=== PATIENT | male | born 1990 | race Two or more races ===

== ENCOUNTER 2018-03-03 09:56 | Emergency (ER) | payer SELFPAY ==
[2018-03-03 10:23] VITALS: BP 137/84; PULSE 63; TEMP 98.2; BMI 36.9
--- NOTE | 2018-03-03 10:31 | PDOC ---
Attending Attestation - Resident Resident Name: SamantaNaderjulianecherelle - ED Attending Attestation I have performed the following: I have examined & evaluated the patient, The case was reviewed & discussed with the resident, I agree w/resident's findings & plan, Exceptions are as noted - HPI HPI: 03/03/18 12:12 Reviewed Residents HPI - Physicial Exam PE: 03/03/18 12:12 Reviewed Residents PE - Medical Decision Making 03/03/18 12:12 28 years old past medical history significant for vertigo presents emergency department with vertiginous episode this morning at work stood up from against been vomited once currently feels better nonfocal neurologic examination. CT head performed which demonstrates no acute pathology given no imaging in the past Labs within normal limits patient feels much better after IV fluids Zofran and meclizine. We'll discharge with prescription for meclizine as well as appointment with our clinic Findings, the need for follow-up and strict return instructions discussed patient.
[2018-03-03] MEDS ORDERED: ONDANSETRON 4 MG/2 ML VIAL IVPUSH ONE (10:32)
[2018-03-03] MEDS ORDERED: SODIUM CHLORIDE 0.9% 1000 ML INFUS.BAG IV ONE (10:32)
[2018-03-03] MEDS ORDERED: MECLIZINE HCL 25 MG TABLET (FP) PO ONE (10:39)
[2018-03-03] MEDS ORDERED: MECLIZINE HCL 25 MG TABLET (FP) ONE (11:05)
[2018-03-03] MEDS ORDERED: ONDANSETRON 4 MG/2 ML VIAL ONE (11:05)
[2018-03-03 11:48] LABS: BASO % 0.7 % (0-2.0); EOS % 2.1 % (0-4.5); HEMATOCRIT 47.6 % (35.4-49); HEMOGLOBIN 16.3 GM/dL (11.7-16.9); LYMPH % 19.2 % (8-40); MCH 30.2 pg (25.7-33.7); MCHC 34.3 g/dl (32.0-35.9); MEAN CELL VOLUME 88.1 fl (80-96); MEAN PLT VOLUME 8.1 fl (7.5-11.1); MONO % 5.1 % (3.8-10.2); NEUT % 72.9 % (42.8-82.8); PLATELET COUNT 279 K/MM3 (134-434); WHITE BLOOD COUNT 8.3 K/mm3 (4.0-10.0)
[2018-03-03 12:14] LABS: ALBUMIN 4.5 g/dl (3.4-5.0); ALK PHOS 90 U/L (45-117); ANION GAP 6 MMOL/L (8-16); BILIRUBIN,TOTAL 0.5 mg/dL (0.2-1); BLOOD UREA NITROGEN 11 mg/dL (7-18); CALCIUM 9.2 mg/dL (8.5-10.1); CHLORIDE 104 mmol/L (98-107); CO2 27 mmol/L (21-32); CREATININE 0.5 mg/dL (0.55-1.3); GLUCOSE,RANDOM 128 mg/dL (74-106); POTASSIUM 4.3 mmol/L (3.5-5.1); SGOT/AST 62 U/L (15-37); SGPT/ALT 181 U/L (13-61); SODIUM 137 mmol/L (136-145); TOT PROT 8.3 g/dl (6.4-8.2)
--- NOTE | 2018-03-03 12:17 | PDOC ---
History of Present Illness - General Chief Complaint: Nausea/Vomiting Stated Complaint: DIZZY/VOMITTING Time Seen by Provider: 03/03/18 10:28 - History of Present Illness Initial Comments: 28 year old male with PMH of what appears to be vertiginous symptoms but never diagnosed presenting with similar vertiginous symptoms since 9 AM. 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 Denies any current nausea and states that his symptoms have improved since but his work forced him to come and get an evaluation. Has been to the ED before for these symptoms (all started one year prior) but has never received a head CT or outpatient follow up with PCP or neurologist because of lack of insurance. Tc and headache, visual symptoms, FND, chest pain, SOB, paresthesias, or other concerning symptoms. He states that when these symptoms have happened in the past, he simply rested and took it easy until they resolved. 03/03/18 12:12 Past History - Past Medical History Allergies/Adverse Reactions: Allergies Allergy/AdvReac Type Severity Reaction Status Date / Time No Known Allergies Allergy Verified 03/03/18 10:14 Home Medications: Ambulatory Orders Meclizine HCl [Antivert -] 25 mg PO DAILY PRN #7 tablet 03/03/18 COPD: No Diabetes: Yes (? not on meds, no pcp) HTN: Yes (no meds) - Immunization History Immunization Up to Date: Yes - Suicide/Smoking/Psychosocial Hx Smoking History: Never smoked Hx Alcohol Use: No Drug/Substance Use Hx: No Review of Systems - Review of Systems Constitutional: No: Chills, Diaphoresis, Fever, Loss of Appetite HEENTM: No: Eye Pain, Blurred Vision, Tearing Respiratory: No: Cough, Orthopnea, Shortness of Breath Cardiac (ROS): No: Chest Pain, Edema, Irregular Heart Rate ABD/GI: Yes: Nausea, Vomiting. No: Diarrhea : No: Burning, Dysuria, Discharge, Frequency Musculoskeletal: No: Joint Pain, Joint Swelling, Muscle Pain Integumentary: No: Bruising, Change in Color, Lesions, Lumps Neurological: Yes: Dizziness. No: Numbness, Paresthesia, Tingling, Tremors, Weakness, Ataxia Psychiatric: No: Anxiety, Depression Endocrine: No: Flushing Hematologic/Lymphatic: No: Anemia, Blood Clots, Easy Bleeding *Physical Exam - Vital Signs Last Vital Signs Temp Pulse Resp BP Pulse Ox 98.2 F 63 18 137/84 97 03/03/18 10:14 03/03/18 10:14 03/03/18 10:14 03/03/18 10:14 03/03/18 11:30 - Physical Exam General Appearance: Yes: Nourished, Appropriately Dressed HEENT: positive: EOMI, INEZ, Normal ENT Inspection, Normal Voice Neck: positive: Trachea midline, Normal Thyroid, Supple. negative: Tender, Rigid Respiratory/Chest: positive: Lungs Clear, Normal Breath Sounds, Respiratory Distress, Accessory Muscle Use. negative: Chest Tender Cardiovascular: positive: Regular Rhythm, Regular Rate Gastrointestinal/Abdominal: positive: Normal Bowel Sounds, Flat. negative: Tender Musculoskeletal: positive: Normal Inspection. negative: Decreased Range of Motion Extremity: positive: Normal Capillary Refill, Normal Inspection, Normal Range of Motion. negative: Tender Integumentary: positive: Normal Color, Dry, Warm Neurologic: positive: academic physician II-XII NML intact, Fully Oriented, Alert, Normal Mood/ Affect, Normal Response, Motor Strength 5/5, Other (Normal gait) ED Treatment Course - LABORATORY CBC & Chemistry Diagram: 03/03/18 11:42 03/03/18 11:42 - ADDITIONAL ORDERS Additional order review: 03/03/18 11:42 RBC 5.40 MCV 88.1 MCHC 34.3 RDW 13.0 MPV 8.1 Neutrophils % 72.9 Lymphocytes % 19.2 Monocytes % 5.1 Eosinophils % 2.1 Basophils % 0.7 - RADIOLOGY Radiology Studies Ordered: Category Date Time Status HEAD CT WITHOUT CONTRAST [CT] Stat CT Scan 03/03/18 10:40 Completed - Medications Given in the ED: ED Medications Discontinued Medications Generic Name Dose Route Start Last Admin Trade Name Freq PRN Reason Stop Dose Admin Meclizine HCl 25 mg 03/03/18 10:39 03/03/18 11:24 Antivert - PO 03/03/18 10:40 25 mg ONCE ONE Administration Ondansetron HCl 4 mg 03/03/18 10:32 03/03/18 11:24 Zofran Injection IVPUSH 03/03/18 10:33 4 mg ONCE ONE Administration Sodium Chloride 1,000 ml 03/03/18 10:32 03/03/18 11:23 Normal Saline - IV 03/03/18 10:33 1,000 ml ONCE ONE Administration Medical Decision Making - Medical Decision Making 28 year old male with PMH of vertiginous symptoms but never officially diagnosed presenting with similar symptoms. Currently his symptoms are improved but he need to be evaluated in order to return to work. Head CT negative, labs WNL, and patient improved after Zofran and meclizine. Will DC home with clinic appointment schedule by our MC, Meclizine, E[place]ley maneuver instructions, and return precautions. 03/03/18 12:20 *DC/Admit/Observation/Transfer Diagnosis at time of Disposition: Vertigo Nausea & vomiting Qualifiers: Vomiting type: bilious vomiting Qualified Code(s): R11.14 - Bilious vomiting - Discharge Dispostion Disposition: HOME Condition at time of disposition: Improved Decision to Admit order: No - Prescriptions Prescriptions: Meclizine HCl [Antivert -] 25 mg PO DAILY PRN #7 tablet PRN Reason: Vertigo - Referrals - Patient Instructions Printed Discharge Instructions: DI for Vertigo Print Language: ESTONIAN - Post Discharge Activity Forms/Work/School Notes: Back to Work Activity Comments: Por favor, use la meclizine diariamente para baeza vrtigo. Debe hacer un seguimiento con el nombramiento de clinci con el que lo establecimos. Regrese a la isaiah de emergencias si tiene sntomas nuevos o que empeoran. 03/03/18 12:48
== END 2018-03-03 13:48 | disposition home or self-care (01) ==
LOC: JER 09:56
PROC: 3E033GC Introduction of Other Therapeutic Substance into Peripheral Vein, Percutaneous Approach (ICD-10-PCS; principal; 2018-03-03)
DX: H81.8X9 Other disorders of vestibular function, unspecified ear (principal); R11.14 Bilious vomiting
CPT/HCPCS: 36415; 70450-TC; 80053; 85025; 99282-25; J7030

== ENCOUNTER 2019-02-12 15:24 | Emergency (ER) | payer OTHER ==
[2019-02-12 16:06] VITALS: TEMP 98.2; BMI 36.9
--- NOTE | 2019-02-12 16:06 | PDOC ---
Rapid Medical Evaluation Medical Evaluation: Allergies Allergy/AdvReac Type Severity Reaction Status Date / Time No Known Allergies Allergy Verified 03/03/18 10:14 I have performed a brief in-person evaluation of this patient. The patient presents with a chief complaint of: hx of vertigo x 1 year, worsening the past month; is taking Meclizine but it is not helping; went to [address] [place] [address] for eval and was told to just continue meclizine; has intermittent emesis; denies other complaints; dizziness worse from squatting to standing position Pertinent physical exam findings: In NAD, no nystagmus I have ordered the following: labs The patient will proceed to the ED for further evaluation. 02/12/19 16:03
[2019-02-12 16:46] LABS: BASO % 1.4 % (0-2.0); HEMATOCRIT 44.9 % (35.4-49); HEMOGLOBIN 15.4 GM/dL (11.7-16.9); LYMPH % 24.4 % (8-40); MCH 30.4 pg (25.7-33.7); MCHC 34.2 g/dl (32.0-35.9); MEAN CELL VOLUME 88.8 fl (80-96); MONO % 5.5 % (3.8-10.2); NEUT % 65.7 % (42.8-82.8); PLATELET COUNT 248 K/MM3 (134-434); RBC 5.05 M/mm3 (4.00-5.60); RDW 12.9 % (11.9-15.9); WHITE BLOOD COUNT 8.6 K/mm3 (4.0-10.0)
[2019-02-12 17:16] LABS: ALBUMIN 4.5 g/dl (3.4-5.0); BILIRUBIN,TOTAL 0.6 mg/dL (0.2-1); BLOOD UREA NITROGEN 9.2 mg/dL (7-18); CALCIUM 9.4 mg/dL (8.5-10.1); CREATININE 0.6 mg/dL (0.55-1.3); POTASSIUM 4.2 mmol/L (3.5-5.1); TOT PROT 7.8 g/dl (6.4-8.2)
--- NOTE | 2019-02-12 19:24 | PDOC ---
History of Present Illness - General Chief Complaint: Lightheaded Stated Complaint: LIGHTHEADED Time Seen by Provider: 02/12/19 16:03 - History of Present Illness Initial Comments: 02/12/19 19:19 CHIEF COMPLAINT: dizziness HISTORY OF PRESENT ILLNESS: 28 yo M with hx of prediabetes and fatty liver disease presents to ED with intermittent dizziness x 1 month. Patient reports he has not seen a neurologist. Patient reports nausea, and 2 episodes of vomiting when his dizziness got worse. 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 Patient denies any fever. No recent travel or sick contacts. PAST MEDICAL HISTORY: Denies past medical history FAMILY HISTORY: Denies SOCIAL HISTORY:Denies tobacco, alcohol, illicit drug use. SURGICAL HISTORY: Denies ALLERGIES: No known drug allergies REVIEW OF SYSTEMS General/Constitutional: Denies fever or chills. Denies weakness, weight change. HEENT: Denies change in vision. Denies ear pain or discharge. Denies sore throat. Cardiovascular: Denies chest pain or shortness of breath. Respiratory: Denies cough, wheezing, or hemoptysis. Gastrointestinal: Denies nausea, vomiting, diarrhea or constipation. Denies rectal bleeding. Genitourinary: Denies dysuria, frequency, or change in urination. Musculoskeletal: Denies joint or muscle swelling or pain. Denies neck or back pain. Skin and breasts: Denies rash or easy bruising. Neurologic: Dizziness x 1 month. Denies headache, loss of consciousness, or loss of sensation. Psychiatric: Denies depression or anxiety. PHYSICAL EXAM General Appearance: Well-appearing, appropriately dressed. No apparent distress , no intoxication. HEENT: EOMI, PERRLA, normal ENT inspection, normal voice, TMs normal, pharynx normal. No conjunctival pallor. No photophobia, scleral icterus. Neck: Supple. Trachea midline. No tenderness, rigidity, carotid bruit, stridor , lymphadenopathy, or thyromegaly. Respiratory/Chest: Lungs CTAB. No shortness of breath, chest tenderness, respiratory distress, accessory muscle use. No crackles, rales, rhonchi, stridor , wheezing, dullness Cardiovascular: RRR. S1, S2. No JVD, murmur, bradycardia, tachycardia. Vascular Pulses: Dorsalis-Pedis (R): 2+, Dorsalis-Pedis (L): 2+ Gastrointestinal/Abdominal: Normal bowel sounds. Abdomen soft, non-distended. No tenderness or rebound tenderness. No organomegaly, pulsatile mass, guarding , hernia, hepatomegaly, splenomegaly. Lymphatic: No adenopathy, tenderness. Musculoskeletal/Extremities: Normal inspection. FROM of all extremities, normal capillary refill. Pelvis Stable. No CVA tenderness. No tenderness to extremities, pedal edema, swelling, erythema or deformity. Integumentary: Appropriate color, dry, warm. No cyanosis, erythema, jaundice or rash Neurologic: numerologist II-XII intact. Fully oriented, alert. Appropriate mood/affect. Motor strength 5/5. No appreciable EOM palsy, facial droop or sensory deficit. 02/12/19 19:24 Past History - Past Medical History Allergies/Adverse Reactions: Allergies Allergy/AdvReac Type Severity Reaction Status Date / Time No Known Allergies Allergy Verified 02/12/19 16:06 Home Medications: Ambulatory Orders Meclizine HCl [Antivert -] 25 mg PO DAILY PRN #7 tablet 03/03/18 COPD: No Diabetes: Yes (vertigo) HTN: Yes (no meds) - Immunization History Immunization Up to Date: Yes - Suicide/Smoking/Psychosocial Hx Smoking History: Never smoked Have you smoked in the past 12 months: No Information on smoking cessation initiated: No Hx Alcohol Use: No Drug/Substance Use Hx: No *Physical Exam - Vital Signs Last Vital Signs Temp Pulse Resp BP Pulse Ox 98.2 F 71 16 145/85 100 02/12/19 16:04 02/12/19 16:04 02/12/19 16:04 02/12/19 16:04 02/12/19 16:04 ED Treatment Course - LABORATORY CBC & Chemistry Diagram: 02/12/19 16:36 02/12/19 16:36 - ADDITIONAL ORDERS Additional order review: Laboratory Results 02/12/19 16:36 Sodium 136 Potassium 4.2 Chloride 102 Carbon Dioxide 27 Anion Gap 7 L BUN 9.2 Creatinine 0.6 Est GFR (CKD-EPI)AfAm 157.47 Est GFR (CKD-EPI)NonAf 135.87 Random Glucose 108 H Calcium 9.4 Total Bilirubin 0.6 AST 55 H ALT 155 H Alkaline Phosphatase 76 Total Protein 7.8 Albumin 4.5 02/12/19 16:36 RBC 5.05 MCV 88.8 MCHC 34.2 RDW 12.9 MPV 8.0 Neutrophils % 65.7 Lymphocytes % 24.4 D Monocytes % 5.5 Eosinophils % 3.0 Basophils % 1.4 Medical Decision Making - Medical Decision Making 02/12/19 19:24 28 yo M with hx of prediabetes and fatty liver disease presents to ED with intermittent dizziness x 1 month. -labs done in triage, unremakrable. Patient is well appearing without any focal neuro deficits. Discussed with patient likelihood of BPPV given recent hx of "ear problem." Patient admits that he saw his PCP yesterday and was prescribed medication for his dizziness which he has not taken yet. Advised patient to take medications as prescribed. Advised patient to f/u with ENT and neuro if symptoms persist. Patient verbalized understanding and agrees to plan. *DC/Admit/Observation/Transfer Diagnosis at time of Disposition: Vertigo - Discharge Dispostion Disposition: HOME Condition at time of disposition: Stable Decision to Admit order: No - Referrals Referrals: Milad Lacy MD [Primary Care Provider] - Sadiq Bernal MD [Staff Physician] - Aj Chambers MD [Staff Physician] - - Patient Instructions Printed Discharge Instructions: DI for Benign Paroxysmal Positional Vertigo Print Language: ITALIAN - Post Discharge Activity Forms/Work/School Notes: Back to Work
[2019-02-12 20:18] VITALS: BP 132/69; PULSE 80
== END 2019-02-12 20:33 | disposition home or self-care (01) ==
LOC: JER 15:24
DX: H81.10 Benign paroxysmal vertigo, unspecified ear (principal); I10 Essential (primary) hypertension; K76.0 Fatty (change of) liver, not elsewhere classified; R73.03 Prediabetes
CPT/HCPCS: 36415; 80053; 85025; 99282-25

== ENCOUNTER 2019-07-07 23:35 | Emergency (ER) | payer OTHER ==
[2019-07-07 23:46] VITALS: BP 153/79; PULSE 73; TEMP 97.8; BMI 36.9
--- NOTE | 2019-07-08 02:07 | PDOC ---
Attending Attestation - Resident Resident Name: Elina Carrasco - ED Attending Attestation I have performed the following: I have examined & evaluated the patient, The case was reviewed & discussed with the resident, I agree w/resident's findings & plan - HPI HPI: 07/08/19 02:42 see resident hpi - Physicial Exam PE: 07/08/19 02:43 see resident exam - Medical Decision Making 07/08/19 02:43 29-year-old male with room spinning dizziness Patient has chronic vertigo and left ear pressure, seen as an outpatient and giving meclizine though he did not try treatment prior to coming to the emergency department, reasons unclear There is no headache or associated trauma Will attempt to meclizine, if resolved will DC with outpatient follow-up If patient fails to improve will escalate work-up to include labs and CT scan Hopeful discharge home pending re-eval
[2019-07-08] MEDS ORDERED: MECLIZINE HCL 25 MG TABLET (FP) PO ONE (02:15)
[2019-07-08] MEDS ORDERED: SODIUM CHLORIDE 0.9% 500 ML INFUS.BAG IV ONE (02:16)
--- NOTE | 2019-07-08 02:16 | PDOC ---
History of Present Illness - General Chief Complaint: Nausea/Vomiting Stated Complaint: DIZZINESS/ VOMITING Time Seen by Provider: 07/08/19 01:43 Past History - Past Medical History Allergies/Adverse Reactions: Allergies Allergy/AdvReac Type Severity Reaction Status Date / Time No Known Allergies Allergy Verified 07/07/19 23:46 Home Medications: Ambulatory Orders Meclizine HCl [Antivert -] 25 mg PO DAILY PRN #7 tablet 07/08/19 COPD: No Diabetes: Yes (vertigo) HTN: Yes (no meds) - Immunization History Immunization Up to Date: Yes - Psycho Social/Smoking Cessation Hx Smoking History: Never smoked Have you smoked in the past 12 months: No Information on smoking cessation initiated: No Hx Alcohol Use: No Drug/Substance Use Hx: No *Physical Exam - Vital Signs Last Vital Signs Temp Pulse Resp BP Pulse Ox 97.8 F 73 17 153/79 100 07/07/19 23:39 07/07/19 23:39 07/07/19 23:39 07/07/19 23:39 07/07/19 23:39 Medical Decision Making - Medical Decision Making 07/08/19 02:15 HPI: 29yo M hx BPPV (presents here to ED 1x/yr since 2017 for same sx, presribed meclizine multiple times but noncompliant) presents from home c/o intermittent vertigo, nausea, and NBNB emesis x1 today, worse with quick movements, resolves on own or with meclizine in past. Tonight's episode ongoing but improving. Never seen neurologist or ENT. Denies recent illness, travel, difficulty speaking, difficulty walking, trauma, head injury, tinnitus, ear pain, ear ringing, fever, chills, fatigue, headache, lightheadedness, numbness/tingling, weakness, vision changes, shortness of breath, cough, chest pain, palpitations, leg swelling, abdominal pain, blood in stool, diarrhea, constipation, dysuria, hematuria, confusion. ROS: Constitutional: Negative for chills, fever, fatigue, diaphoresis. HENT: Negative for sore throat, rhinorrhea, congestion. Eyes: Negative for visual disturbance. Respiratory: Negative for shortness of breath, cough, and wheezing. Cardiovascular: Negative for chest pain, palpitations, and leg swelling. Gastrointestinal: Positive for nausea and vomiting. Negative for abdominal pain , blood in stool, constipation, diarrhea. Genitourinary: Negative for dysuria, flank pain, and hematuria. Musculoskeletal: Negative for myalgias, back pain, and neck pain. Skin: Negative for rash. Neurological: Positive for vertigo. Negative for light-headedness, syncope, weakness, numbness and headaches. Psychiatric/Behavioral: Negative for behavioral problems and confusion. PE: Gen: Alert, NAD, comfortable-appearing. HEENT: PERRL, EOMI, MMM, NCAT. No conjunctival pallor. Sclera are non-icteric. Oropharynx is clear. Ear canals and TMs clear. CV: Regular rate and rhythm. No murmurs, rubs, or gallops. PULM: No resp distress. CTAB, no wheezes, rales, or rhonchi. ABD: soft, NT/ND, no rebound tenderness or guarding, no CVA tenderness. BACK: No TTP of c/t/l-spine. No step-offs or deformities. MSK: No bony deformities. 2+ pulses in all extremities. NEURO: AAOx3. PERRL. CN 2-12 intact. 5/5 strength in all extremities. Sensation to light touch intact in all extremities. No pronator drift. No dysmetria. No dysdiadochokinesia. No abnormal nystagmus. Normal gait. EXTREMITIES: No cyanosis. No clubbing. No edema. No calf tenderness. PSYCH: Normal mood and thought pattern. SKIN: Warm and dry. Normal capillary refill. No rashes. No jaundice. MDM: 29yo M hx BPPV (presents here to ED 1x/yr since 2017 for same sx, presribed meclizine multiple times but noncompliant) presents from home with acute on chronic intermittent vertigo, nausea, and NBNB emesis x1 today, worse with quick movements, resolves on own or with meclizine in past. Hemodynamically stable, afebrile, neurologically intact. Presentation, history, and consistency with chronic BPPV consistent with BPPV. Also consider other etiologies of peripheral vertigo such as meniere's or labyrinthitis. Treat with meclizine and reassess. Due to consistency and lack of other s/s, very low concern for other etiologies such ACS/OK or arrhythmia ( eval wit EKG), metabolic derangement (eval glucose with finger stick), anemia, stroke, ICH, migraine headache, MS, thyroid pathology, or infection. -Meclizine -EKG -Finger stick -Reassess s/p meclizine. If no improvement, reconsider further testing such as labs and CTH -Dispo: likely d/c home pending w/u and reassessment 07/08/19 04:23 Glucose 184 EKG reviewed: NSR, 79bpm, normal axis, normal intervals, no e/o acute ischemia Pt asymptomatic s/p meclizine, wants to go home. Will discharge home with PCP f/u and meclizine rx. Return precautions given. Pt understands all discharge instructions and all questions were answered. Discharge - Discharge Information Problems reviewed: Yes Clinical Impression/Diagnosis: Vertigo Condition: Improved Disposition: HOME - Admission No - Additional Discharge Information Prescriptions: Meclizine HCl [Antivert -] 25 mg PO DAILY PRN #7 tablet PRN Reason: Vertigo - Follow up/Referral - Patient Discharge Instructions Patient Printed Discharge Instructions: DI for Vertigo Additional Instructions: You have been seen in the Emergency Department for your vertigo. Take Meclizine as needed as prescribed for vertigo. Follow-up with your primary care doctor within 1 week. Return to the Emergency Department for any new or worsening symptoms including numbness or tingling, weakness, difficulty walking or speaking, fever, or passing out. - Post Discharge Activity
[2019-07-08] MEDS ORDERED: MECLIZINE HCL 25 MG TABLET (FP) ONE (02:40)
--- NOTE | 2019-07-08 15:13 | EKG ---
Test Reason : Blood Pressure : / mmHG Vent. Rate : 079 BPM Atrial Rate : 079 BPM P-R Int : 164 ms QRS Dur : 100 ms QT Int : 368 ms P-R-T Axes : 055 048 025 degrees QTc Int : 421 ms NORMAL SINUS RHYTHM NORMAL ECG NO PREVIOUS ECGS AVAILABLE Confirmed by LESLIE MOSLEY MD ([id number]) on 07/08/2019 3:13:16 PM Referred By: Confirmed By:LESLIE MOSLEY MD
== END 2019-07-08 05:00 | disposition home or self-care (01) ==
LOC: JER 23:35
DX: R42 Dizziness and giddiness (principal); I10 Essential (primary) hypertension
CPT/HCPCS: 82962; 93005; 93010; 99284-25

== ENCOUNTER 2021-03-11 20:19 | Emergency (ER) | payer SELFPAY ==
[2021-03-11 20:41] VITALS: BMI 36.9
[2021-03-11] MEDS ORDERED: METOCLOPRAMIDE HCL 10 MG TABLET (FP) PO ONE ×2 (21:43→21:54)
[2021-03-11] MEDS ORDERED: SCOPOLAMINE HYDROBROMIDE 1 PATCH PATCH.TD72 TD SCH (21:45)
[2021-03-11] MEDS ORDERED: diazePAM 2 MG TABLET PO ONE (22:58)
[2021-03-11] MEDS ORDERED: diazePAM 2 MG TABLET ONE (23:00)
[2021-03-12 00:06] VITALS: BP 117/80; PULSE 85; TEMP 97.9
== END 2021-03-12 00:06 | disposition home or self-care (01) ==
LOC: JER 20:19
DX: R42 Dizziness and giddiness (principal); H81.13 Benign paroxysmal vertigo, bilateral; H93.12 Tinnitus, left ear; H73.92 Unspecified disorder of tympanic membrane, left ear
CPT/HCPCS: 99283-25